=== PATIENT | male | born 1990 ===

== ENCOUNTER 2018-02-24 15:55 | Emergency (ER) | payer OTHER, BC ==
[2018-02-24] MEDS: DIPHTH/TET/ACEL PERTUSS (ADULT) 0.5 ML VIAL IM (17:59)
== END 2018-02-24 18:38 | disposition home or self-care (01) ==
LOC: FTE 15:55
DX: S01.81XA Laceration without foreign body of other part of head, initial encounter (principal); E11.9 Type 2 diabetes mellitus without complications; W26.8XXA Contact with other sharp object(s), not elsewhere classified, initial encounter; Y92.89 Other specified places as the place of occurrence of the external cause; Z23 Encounter for immunization
CPT/HCPCS: 12011; 90471; 90715; 99283-25